=== PATIENT | male | born 1950 | race African-American/Black ===

== ENCOUNTER 2018-05-15 00:06 | Emergency (ER) | payer BC, MEDICARE ==
[~2018-05-15] VITALS: Ht 172.7 cm; Wt 88.0 kg
[~2018-05-15 00:06] MED LIST: ALBU18HF2 IH; ALBU6.7H INH; AMLO10TA80 PO; ASPI-1159 PO; CARV3.1242 PO; LISI10TA5 PO; LOSA100T14 PO; MELO-106 PO; TAMS0.4C31 PO
[2018-05-15 02:18] LABS: BASOPHILS % 0.4 % (0.0-2.0); EOSINOPHILS % 3.1 % (0.0-5.0); HEMATOCRIT. 32.8 % (42.0-52.0); HEMOGLOBIN. 10.8 g/dL (14.0-18.0); LYMPHOCYTES % 12.1 % (20.0-50.0); MEAN CORPUSCULAR HEMOGLOBIN 30.1 pg (28.0-32.0); MEAN CORPUSCULAR VOLUME 91.7 fL (80.0-94.0); MEAN PLATELET VOLUME 8.4 fl (7.4-10.4); MONOCYTES % 12.7 % (2.0-8.0); NEUTROPHILS % 71.7 % (40.0-76.0); PLATELET 217 x1000/uL (130-400); RED BLOOD CELL COUNT 3.57 mill/uL (4.7-6.1)
[2018-05-15 02:20] LABS: CHLORIDE 116 mEq/L (98-107)
[2018-05-15] MEDS ORDERED: ENALAPRIL 2.5MG/2ML VIAL 2ML IV ONE (03:15)
[2018-05-15 04:30] VITALS: BP 170/92
== END 2018-05-15 04:33 | disposition home or self-care (01) ==
LOC: ER 00:06
DX: I11.0 Hypertensive heart disease with heart failure (principal); I50.9 Heart failure, unspecified; M19.90 Unspecified osteoarthritis, unspecified site; F12.10 Cannabis abuse, uncomplicated; R94.31 Abnormal electrocardiogram [ECG] [EKG]; Z79.82 Long term (current) use of aspirin
CPT/HCPCS: 36415; 71045; 80053; 83880; 84484; 85025; 93005; 96374; 99284; J3490

== ENCOUNTER 2018-05-24 01:07 | Emergency (ER) | payer MEDICARE ==
[~2018-05-24] VITALS: Ht 188 cm; Wt 91.0 kg
[2018-05-24 11:50] VITALS: BP 122/98
== END 2018-05-24 11:50 | disposition home or self-care (01) ==
LOC: ER 01:07
DX: F10.129 Alcohol abuse with intoxication, unspecified (principal); Y90.6 Blood alcohol level of 120-199 mg/100 ml; F17.200 Nicotine dependence, unspecified, uncomplicated; Z59.0 Homelessness; Z79.82 Long term (current) use of aspirin
CPT/HCPCS: 36415; 99283; G0482

== ENCOUNTER 2018-06-07 02:38 | Emergency (ER) | payer MEDICARE ==
[~2018-06-07] VITALS: Ht 172.7 cm; Wt 91.0 kg
[2018-06-07 08:48] LABS: BASOPHILS % 0.8 % (0.0-2.0); EOSINOPHILS % 3.8 % (0.0-5.0); HEMATOCRIT. 34.5 % (42.0-52.0); HEMOGLOBIN. 11.4 g/dL (14.0-18.0); LYMPHOCYTES % 21.3 % (20.0-50.0); MEAN CORPUSCULAR VOLUME 90.9 fL (80.0-94.0); MEAN PLATELET VOLUME 8.4 fl (7.4-10.4); MONOCYTES % 10.5 % (2.0-8.0); NEUTROPHILS % 63.6 % (40.0-76.0); PLATELET 238 x1000/uL (130-400); RED CELL DISTRIBUTION WIDTH 13.9 % (11.6-14.6)
[2018-06-07 08:55] LABS: CHLORIDE 109 mEq/L (98-107)
[2018-06-07 08:56] LABS: INR 1.1; PROTHROMBIN TIME 10.7 sec (9.1-11.1)
[2018-06-07 09:20] LABS: CLARITY URINE CLEAR (CLEAR); COLOR URINE YELLOW (YELLOW); KETONES URINE NEGATIVE (NEGATIVE); LEUKOCYTE ESTERASE URINE NEGATIVE (NEGATIVE); NITRITE URINE NEGATIVE (NEGATIVE); OCCULT BLOOD URINE NEGATIVE (NEGATIVE); PROTEIN URINE NEGATIVE (NEGATIVE); SPECIFIC GRAVITY URINE 1.009 (1.005-1.030); UROBILINOGEN URINE 0.2 E.U./dL (0.2-1.0)
[2018-06-07 10:49] VITALS: BP 152/90
== END 2018-06-07 10:50 | disposition home or self-care (01) ==
LOC: ER 02:38
DX: R60.9 Edema, unspecified (principal); M71.21 Synovial cyst of popliteal space [Baker], right knee; J40 Bronchitis, not specified as acute or chronic; I51.7 Cardiomegaly; J44.9 Chronic obstructive pulmonary disease, unspecified
CPT/HCPCS: 36415; 71045; 73610; 93971; 99284

== ENCOUNTER 2018-06-15 01:36 | Inpatient (IN) | payer MEDICARE ==
[~2018-06-15] VITALS: Ht 172.7 cm; Wt 87.2 kg
[2018-06-15] MEDS ORDERED: ASPIRIN 325MG EC TABLET PO ONE (04:15)
[2018-06-15 05:36] LABS: BASOPHILS % 0.6 % (0.0-2.0); HEMATOCRIT. 35.8 % (42.0-52.0); HEMOGLOBIN. 11.6 g/dL (14.0-18.0); LYMPHOCYTES % 16.4 % (20.0-50.0); MEAN CORPUSCULAR HEMOGLOBIN 29.5 pg (28.0-32.0); MEAN CORPUSCULAR VOLUME 91.2 fL (80.0-94.0); MEAN PLATELET VOLUME 8.9 fl (7.4-10.4); MONOCYTES % 9.1 % (2.0-8.0); NEUTROPHILS % 71.9 % (40.0-76.0); PLATELET 228 x1000/uL (130-400); RED BLOOD CELL COUNT 3.93 mill/uL (4.7-6.1)
[2018-06-15 05:39] LABS: CHLORIDE 110 mEq/L (98-107)
[2018-06-15 05:47] LABS: PROTHROMBIN TIME 10.5 sec (9.1-11.1)
[2018-06-15 06:42] LABS: CLARITY URINE CLEAR (CLEAR); COLOR URINE YELLOW (YELLOW); KETONES URINE NEGATIVE (NEGATIVE); LEUKOCYTE ESTERASE URINE NEGATIVE (NEGATIVE); NITRITE URINE NEGATIVE (NEGATIVE); OCCULT BLOOD URINE NEGATIVE (NEGATIVE); PH URINE 7.5 (4.5-8.0); PROTEIN URINE NEGATIVE (NEGATIVE); SPECIFIC GRAVITY URINE 1.015 (1.005-1.030); UROBILINOGEN URINE 0.2 E.U./dL (0.2-1.0)
[2018-06-15 09:00] VITALS: BP 156/93
[2018-06-15] MEDS ORDERED: ACETAMINOPHEN 325MG TABLET PO PRN (09:15)
[2018-06-15] MEDS ORDERED: ONDANSETRON HCL 4MG/2ML INJ IV PRN (09:15)
[2018-06-15] MEDS: FUROSEMIDE 40MG/4ML VIAL IVP SCH ×2 (10:07→16:47)
[2018-06-15 12:11] VITALS: BP 166/102
[2018-06-15] MEDS: HYDRALAZINE HCL 50MG TABLET PO SCH ×2 (13:27→21:24)
[2018-06-15 14:32] LABS: *AMPHETAMINES SCREEN URINE NEGATIVE (NEGATIVE); *BARBITURATES SCREEN URINE NEGATIVE (NEGATIVE); *BENZODIAZEPINES SCREEN URINE NEGATIVE (NEGATIVE); *COCAINE SCREEN URINE NEGATIVE (NEGATIVE)
[2018-06-15 14:33] LABS: METHADONE URINE SCREEN NEGATIVE (NEGATIVE); OPIATES URINE SCREEN NEGATIVE (NEGATIVE); PHENCYCLIDINE URINE SCREEN NEGATIVE (NEGATIVE)
[2018-06-15 14:35] LABS: CANNABINOID URINE SCREEN PRESUMTIVE POSITIVE (NEGATIVE)
[2018-06-15 15:47] LABS: T4 FREE 0.98 ng/dL (0.76-1.46)
[2018-06-15 15:48] LABS: CREATINE KINASE MB FRACTION 1.6 ng/mL (0.5-3.6)
[2018-06-15 16:00] VITALS: BP 146/99
[2018-06-15 20:00] VITALS: BP 130/70
[2018-06-15] MEDS ORDERED: HYDRALAZINE HCL 50MG TABLET PO SCH (21:00)
[2018-06-15] MEDS: AMLODIPINE 5MG TABLET PO SCH (21:24)
[2018-06-15] MEDS: ENOXAPARIN 40MG/0.4ML SYR SUBCUT SCH (21:25)
[2018-06-15 23:06] LABS: CREATINE KINASE MB FRACTION 1.3 ng/mL (0.5-3.6)
[2018-06-16] VITALS: BP 151/88
[2018-06-16 04:00] VITALS: BP 150/84
[2018-06-16] MEDS: HYDRALAZINE HCL 50MG TABLET PO SCH ×3 (05:46→21:08)
[2018-06-16 08:00] VITALS: BP 145/92
[2018-06-16] MEDS ORDERED: REGADENOSON 0.4 MG/5 ML IV NR (08:30)
[2018-06-16] MEDS ORDERED: ASPIRIN 81MG TABLET PO SCH (09:00)
[2018-06-16] MEDS: FUROSEMIDE 40MG/4ML VIAL IVP SCH ×2 (09:14→17:54)
[2018-06-16] MEDS: AMLODIPINE 5MG TABLET PO SCH ×2 (09:14→20:43)
[2018-06-16] MEDS: ASPIRIN 81MG TABLET PO SCH (09:14)
[2018-06-16 10:45] LABS: BASOPHILS % 0.5 % (0.0-2.0); EOSINOPHILS % 0.9 % (0.0-5.0); HEMATOCRIT. 35.2 % (42.0-52.0); HEMOGLOBIN. 11.6 g/dL (14.0-18.0); LYMPHOCYTES % 9.6 % (20.0-50.0); MEAN CORPUSCULAR HEMOGLOBIN 29.7 pg (28.0-32.0); MEAN CORPUSCULAR VOLUME 90.1 fL (80.0-94.0); MEAN PLATELET VOLUME 8.3 fl (7.4-10.4); MONOCYTES % 6.7 % (2.0-8.0); NEUTROPHILS % 82.3 % (40.0-76.0); PLATELET 237 x1000/uL (130-400); RED BLOOD CELL COUNT 3.91 mill/uL (4.7-6.1); RED CELL DISTRIBUTION WIDTH 14.2 % (11.6-14.6)
[2018-06-16 10:52] LABS: CHLORIDE 105 mEq/L (98-107)
[2018-06-16 11:00] LABS: CREATINE KINASE 70 IU/L (39-308)
[2018-06-16 11:07] LABS: CREATINE KINASE MB FRACTION 1.2 ng/mL (0.5-3.6)
[2018-06-16] MEDS ORDERED: REGADENOSON 0.4 MG/5 ML IV ONE (11:12)
[2018-06-16 12:00] VITALS: BP 124/66
[2018-06-16] MEDS ORDERED: POTASSIUM CHLORIDE 20MEQ TABLET SR PO NR (12:00)
[2018-06-16 16:00] VITALS: BP 132/86
[2018-06-16 20:00] VITALS: BP 129/79
[2018-06-16] MEDS: ENOXAPARIN 40MG/0.4ML SYR SUBCUT SCH (20:43)
[2018-06-17] VITALS: BP_SYST 128; BP_SYST 95; BP_DIAS 41; BP_DIAS 74
[2018-06-17 04:00] VITALS: BP 156/95
[2018-06-17] MEDS: HYDRALAZINE HCL 50MG TABLET PO SCH ×2 (06:11→13:37)
[2018-06-17 08:00] VITALS: BP 132/82
[2018-06-17] MEDS: FUROSEMIDE 40MG/4ML VIAL IVP SCH (08:34)
[2018-06-17] MEDS: ASPIRIN 81MG TABLET PO SCH (08:34)
[2018-06-17] MEDS: AMLODIPINE 5MG TABLET PO SCH (08:34)
[2018-06-17 12:01] VITALS: BP 137/92
[2018-06-17 13:53] VITALS: BP 137/92
== END 2018-06-17 15:25 | disposition home or self-care (01) | DRG 682 ==
LOC: ER 01:36 → 8WST 05:45 → EDBEDREQ 05:47 → ENRESERV 07:23
PROVIDERS: ADMIT Internal Medicine; ATTEND Internal Medicine
DX: N17.9 Acute kidney failure, unspecified (principal); I50.21 Acute systolic (congestive) heart failure; E87.0 Hyperosmolality and hypernatremia; I42.9 Cardiomyopathy, unspecified; M94.0 Chondrocostal junction syndrome [Tietze]; E78.5 Hyperlipidemia, unspecified; F12.90 Cannabis use, unspecified, uncomplicated; I11.0 Hypertensive heart disease with heart failure; G40.909 Epilepsy, unspecified, not intractable, without status epilepticus; E87.8 Other disorders of electrolyte and fluid balance, not elsewhere classified; D64.9 Anemia, unspecified; Z86.73 Personal history of transient ischemic attack (TIA), and cerebral infarction without residual deficits; Z79.899 Other long term (current) drug therapy
CPT/HCPCS: 36415; 71045; 78452; 80048; 80061; 80305; 82550; 82553; 83036; 83880; 84439; 84443; 84484; 85379; 93005; 93017; 93306; 93970; 96361; 96374; 99285; A9500; J1650; J1940; J2785